=== PATIENT | female | born 1965 | race Caucasian/White ===

== ENCOUNTER 2021-09-10 08:15 | Outpatient (RCR) | payer OTHER, SELFPAY | END 2021-12-15 09:37 | disposition home or self-care (01) | PROVIDERS: PCP Family Medicine; Visit Provider Family Medicine | DX: M54.50 Low back pain, unspecified (principal); Z51.89 Encounter for other specified aftercare | CPT/HCPCS: 97110 ==

== ENCOUNTER 2024-03-23 06:30 | Outpatient (CLI) | payer OTHER, SELFPAY ==
--- NOTE | 2024-03-23 07:37 | P.ANES_ITS ---
Anesthesia Charges Start Date/Time Anesthesia Start Date: 03/23/24 Anesthesia Start Time: 07:16 Stop Date/Time Anesthesia Stop Date: 03/23/24 Anesthesia Stop Time: 07:34 Coding CPT Codes CPT Codes: ANES LWR INTST NDSC NOS - [id number] ([id number]) P3 - PATIENT W/SEVERE SYS DISEASE, QX - CRITICAL POWER TECHNICIAN SVC W/ MD MED DIRECTION, QK - CHILD NUTRITION MANAGER 2-4 CNCRNT ANES PROC
--- NOTE | 2024-03-23 07:37 | W.ANESCHARGE ---
Anesthesia Charges Start Date/Time Anesthesia Start Date: 03/23/24 Anesthesia Start Time: 07:16 Stop Date/Time Anesthesia Stop Date: 03/23/24 Anesthesia Stop Time: 07:34 Coding CPT Codes CPT Codes: ANES LWR INTST NDSC NOS - [id number] ([id number]) P3 - PATIENT W/SEVERE SYS DISEASE, QX - COPY EDITOR SVC W/ MD MED DIRECTION, QK - [place] DEPARTMENT SUPERVISOR 2-4 CNCRNT ANES PROC
--- NOTE | 2024-03-23 08:19 | P.ANES_ITS ---
Anesthesia Charges Start Date/Time Anesthesia Start Date: 03/23/24 Anesthesia Start Time: 07:16 Stop Date/Time Anesthesia Stop Date: 03/23/24 Anesthesia Stop Time: 07:34 Coding CPT Codes CPT Codes: ANES LWR INTST NDSC NOS - [id number] ([id number]) QK - TOOLING ENGINEERING TECH 2-4 CNCRNT ANES PROC, QX - MANAGER OF ENGINEERING SVC W/ MD MED DIRECTION, P3 - PATIENT W/SEVERE SYS DISEASE
--- NOTE | 2024-03-23 08:19 | W.ANESCHARGE ---
Anesthesia Charges Start Date/Time Anesthesia Start Date: 03/23/24 Anesthesia Start Time: 07:16 Stop Date/Time Anesthesia Stop Date: 03/23/24 Anesthesia Stop Time: 07:34 Coding CPT Codes CPT Codes: ANES LWR INTST NDSC NOS - [id number] ([id number]) QK - SOLAR ENERGY TECHNICIAN 2-4 CNCRNT ANES PROC, QX - BACK STRIP MACHINE OPERATOR SVC W/ MD MED DIRECTION, P3 - PATIENT W/SEVERE SYS DISEASE
== END 2024-03-23 06:31 | disposition home or self-care (01) ==
LOC: OP CLINIC 06:33
PROVIDERS: PCP Family Medicine; Visit Provider Internal Medicine Gastroenterology
DX: Z12.11 Encounter for screening for malignant neoplasm of colon (principal)
CPT/HCPCS: 00811; 45380; 88305; J2704

== ENCOUNTER 2025-02-19 13:15 | Outpatient (RCR) | payer BC, SELFPAY | END 2025-02-19 15:11 | disposition home or self-care (01) | PROVIDERS: PCP Family Medicine; Visit Provider Family Medicine | DX: M79.645 Pain in left finger(s) (principal); Z51.89 Encounter for other specified aftercare | CPT/HCPCS: 97035; 97110; 97140; 97166; L3913; X5282 ==